=== PATIENT | female | born 1940 | race Caucasian/White ===

== ENCOUNTER 2024-12-29 21:09 | Emergency (ER) | payer OTHER, SELFPAY ==
[2024-12-29 21:12] VITALS: BP 165/80
[2024-12-29 23:34] VITALS: BP 171/90
--- NOTE | 2024-12-29 23:54 | ED.GENMED ---
History of Present Illness
General
Chief Complaint: Musculo-Skeletal Complaint
Source: patient
Exam Limitations: none
Time Seen by Provider: 12/29/24 23:41
Nursing documentation reviewed up to this point in time: agreed with
History of Present Illness
History of Present Illness:
Patient presents to ED for evaluation secondary to left ankle injury, which occurred around 2 PM this afternoon. Patient states that she was inside a theater. When she was walking down the stairs, her left ankle twisted causing her to lose balance
and fall onto her buttocks. Since then, patient has been able to ambulate, but pain has become worse. Denies any other injuries from the fall. Denies loss of sensation. Denies weakness.
Past History
Past History
ED Past Medical History: GERD and Hypercholesterolemia
Social History
Tobacco: Non-smoker
Review of Systems
Review of Systems
Allergies reviewed?: Yes
All Other Systems: ROS reviewed and negative except as documented in HPI and ROS
Constitutional: Reports no symptoms
ABD/GI: Reports no symptoms
Musculoskeletal: Reports joint pain (Ankle) and joint swelling (Ankle)
Skin: Reports no symptoms
Neurological: Reports no symptoms; Denies weakness or numbness
Phy Exam
Physical Exam
Physical Exam:
Physical Exam
General: no apparent distress, not acutely ill. afebrile
Head: nc/at. eomi
Neck: supple. normal range of motion.
Neuro: alert and oriented x 3. no focal neurological deficits
Skin: no rash
Psychiatric: well kept. interactive and cooperative
Extremities: mild left lateral malleolus swelling with tenderness to palpation. DPP palpable
Course
Orders/Labs/Results
Orders:
Orders
12/29/24 23:00
Flush (0.9% Sodium Chloride) [Flush (Nss)] See Dose Instructions IV PER PROTOCOL
12/29/24 23:53
Acetaminophen [Tylenol] 650 mg PO NOW STA
12/30/24 00:00
CR Ankle - Left Min 3 Views Urgent
Reason For Exam: tripped on step rolled left ankle
12/30/24 00:55
Ortho Boot Left- Treatment ONCE
Short or tall?: Short
Vital Signs
Initial and Last Documented VS:
Initial Vital Signs
Temp Pulse Resp BP Pulse Ox
97.9 F 82 18 165/80 100
12/29/24 21:12 12/29/24 21:12 12/29/24 21:12 12/29/24 21:12 12/29/24 21:12
Last Documented Vital Signs
Temp Pulse Resp BP Pulse Ox
97.9 F 70 18 171/90 100
12/29/24 21:12 12/29/24 23:34 12/29/24 21:12 12/29/24 23:34 12/29/24 23:34
MDM/Problems Addressed
MDM/Problems Addressed:
History and exam consistent with likely minor ankle sprain. Patient otherwise is neurologically intact. Patient will be fitted with Ortho boot, with recommendation to follow-up with PCP for reevaluation. Patient also has walker at home, which she
will utilize short-term.
*Critical Care Note
Total Time (30-74mins, 75-104mins- exclusive of procedures): Not Applicable
ED Attending Note
-
Portions of this chart may have been created with voice recognition software.� Occasional wrong word or��sound alike� substitutions may have occurred due to the inherent limitations of voice recognition software.
Discharge Plan
Departure
Patient Disposition: Home (Routine Discharge)
Date of Disposition: 12/30/24
Time of Disposition: 00:54
Patient with high blood pressure during this ER visit?: Yes
Condition: Good
Discharge Problem:
Ankle sprain
Instructions: Walking Boot, Ankle sprain - ED discharge instructions
Prescriptions:
No Action
albuterol sulfate [ProAir HFA] 90 mcg/actuation Hfa Aerosol Inhaler
1 puff INHALATION Q4HPRN PRN (Reason: shortness of breath) Qty: 1 0RF
lorazepam [Ativan] 0.5 mg tablet
0.5 mg PO Q8H PRN (Reason: anxiety) Qty: 7 0RF
Referrals:
Joseph Clement MD [Family Provider] -
Activity Restrictions/Additional Instructions:
As discussed, please follow-up with your primary care physician for reevaluation.
Interventions
Interventions:
*Risk Screen - Suicide Last Done: 12/29/24 21:14
*General Assessment Last Done: 12/29/24 21:14
*Neglect/Abuse Screening Last Done: 12/29/24 21:14
*ED- Fall Risk Assessment Last Done: 12/29/24 23:30
*ED COVID-19 Vaccine History Last Done: 12/29/24 21:14
*Nursing Disposition Last Done: 12/30/24 01:40
ED-Musculoskeletal Assessment Last Done: 12/29/24 23:30
Discharge Date and Time
Discharge Date/Time: 12/30/24 01:40
Print Language: IRANIAN
[2024-12-30] MEDS: TYLENOL 650 MG PO (00:13)
== END 2024-12-30 01:40 | disposition home or self-care (01) ==
LOC: EMR 21:09
PROVIDERS: EMERGENCY PHYSICIAN Emergency Medicine; FAMILY PHYSICIAN Hospitalist
DX: S93.402A Sprain of unspecified ligament of left ankle, initial encounter (principal); X50.1XXA Overexertion from prolonged static or awkward postures, initial encounter; Y93.9 Activity, unspecified; W10.8XXA Fall (on) (from) other stairs and steps, initial encounter; E78.00 Pure hypercholesterolemia, unspecified
CPT/HCPCS: 99283; 73610